=== PATIENT | female | born 2000 | race Caucasian/White ===

== ENCOUNTER 2022-04-02 10:51 | Emergency (ER) | payer OTHER ==
[2022-04-02 12:58] LABS: SARS-CoV-2 NAA Rapid Test Not Detected (NotDetected)
== END 2022-04-02 13:35 | disposition home or self-care (01) ==
LOC: CSHERS 10:51
DX: B34.9 Viral infection, unspecified (principal); Z79.82 Long term (current) use of aspirin; Z20.822 Contact with and (suspected) exposure to COVID-19
CPT/HCPCS: 99283

== ENCOUNTER 2022-04-06 00:32 | Day surgery (SDC) | payer OTHER ==
[2022-04-06] MEDS ORDERED: hydrALAZINE 20 MG/ML VIAL SLOW IVP PRN (01:12)
[2022-04-06] MEDS ORDERED: Lactated Ringer's 1,000 ML IV SCH (01:15)
[2022-04-06 01:47] LABS: Bilirubin Neg (Negative); Blood, Urine Negative (Negative); Clarity Clear (Clear); Glucose, Urine (Dipstick) Normal (Negative); Ketone, Urine 50 mg/dL (Negative); Leukocyte Negative (Negative); Nitrite Negative (Negative); Protein, Urine (Dipstick) Negative (Neg-Trace); Specific Gravity, Urine 1.005 (1.005-1.030)
[2022-04-06 01:57] LABS: RBC/HPF 0-3 HPF (0-3); Urine Culture Reflex No No
[2022-04-06 01:58] LABS: Bacteria/HPF Rare-Few HPF (None Seen); Renal Epithelial 0-3 HPF (None Seen); Squamous Epithelial 0-3 HPF (0-3); WBC/HPF 0-3 HPF (0-3)
[2022-04-06] MEDS ORDERED: Albuterol Sulfate 2.5 mg/3 ml Neb NEB SCH (02:03)
[2022-04-06 03:43] VITALS: BMI 36.1
[2022-04-06] MEDS ORDERED: Iopamidol 370 76% 100 ML VIAL ONE (09:46)
== END 2022-04-06 04:19 | disposition home or self-care (01) ==
LOC: CSHLD/OP 00:32
PROVIDERS: ATTEND Obstetrics & Gynecology
DX: O99.512 Diseases of the respiratory system complicating pregnancy, second trimester (principal); R06.02 Shortness of breath; R05.9 Cough, unspecified; R06.00 Dyspnea, unspecified; O99.891 Other specified diseases and conditions complicating pregnancy; R30.0 Dysuria; O26.892 Other specified pregnancy related conditions, second trimester; R10.9 Unspecified abdominal pain; R07.81 Pleurodynia; R51.9 Headache, unspecified; Z3A.27 27 weeks gestation of pregnancy; Z79.899 Other long term (current) drug therapy
CPT/HCPCS: 51701; 71046; 71275; 81001; 96360; 96361; 99282; Q9967

== ENCOUNTER 2022-07-01 19:00 | Inpatient (IN) | payer OTHER ==
[2022-07-01] MEDS ORDERED: Lidocaine 1% (PF) 30 ML VIAL SC PRN (20:59)
[2022-07-01] MEDS ORDERED: Promethazine HCl 25 MG/ML VIAL IM PRN (20:59)
[2022-07-01] MEDS ORDERED: hydrALAZINE 20 MG/ML VIAL SLOW IVP PRN (20:59)
[2022-07-01] MEDS ORDERED: Ibuprofen 800 MG TAB PO PRN (20:59)
[2022-07-01] MEDS ORDERED: Acetaminophen 500 MG TAB PO PRN (20:59)
[2022-07-01] MEDS ORDERED: Ondansetron PF 4 MG/2 ML Vial IVP PRN (20:59)
[2022-07-01] MEDS ORDERED: NS w/ Oxytocin 30 units 500 ML IV SCH (21:00)
[2022-07-01] MEDS ORDERED: Misoprostol 100 MCG TAB ONE (21:03)
[2022-07-01 21:15] LABS: Hemoglobin 11.8 g/dL (12.0-15.5); Mean Corpuscular HGB CONC 33.8 g/dL (32.0-36.0); Mean Corpuscular Hemoglobin 28.6 pg (27.0-33.0); Mean Corpuscular Volume 84.7 fl (81.6-98.3); Mean Platelet Volume 13.3 fl (7.4-10.4); Platelet Count 218 10x3/uL (150-450); RBC Distribution Width 14.6 % (11.5-14.5); Red Blood Cell (RBC) Count 4.12 10x6/uL (3.90-5.03); White Blood Cell (WBC) Count 8.7 10x3/uL (3.5-10.5)
[2022-07-01] MEDS ORDERED: Misoprostol 100 MCG TAB VAG SCH (22:00)
[2022-07-01 22:29] LABS: HBSAg Index 0.12 S/CO (0-0.99); Hep B Surf Ag Non-Reactive S/CO (NonReactive)
[2022-07-01 22:30] LABS: Syphilis Antibody Nonreactive (Nonreactive); Syphilis Antibody Index 0.04 S/CO (<1.00 Non-Reactive)
[2022-07-01 23:46] LABS: SARS-CoV-2 NAA Rapid Test Not Detected (NotDetected)
[2022-07-02] MEDS ORDERED: NS w/ Oxytocin 30 units 500 ML IV SCH ×2 (01:30→11:11)
[2022-07-02 01:42] LABS: Glucose 77 mg/dL (70-105)
[2022-07-02] MEDS: Lactated Ringer's 1,000 ML IV SCH ×2 (11:10→11:11)
[2022-07-02] MEDS ORDERED: Ondansetron PF 4 MG/2 ML Vial IVP PRN (11:11)
[2022-07-02] MEDS ORDERED: Boostrix 0.5 ML (Tdap) VIAL (>/=7 yrs of age) IM ONE (11:11)
[2022-07-02] MEDS ORDERED: diphenhydrAMINE 25 MG CAP PO PRN (11:11)
[2022-07-02] MEDS ORDERED: Promethazine HCl 25 MG/ML VIAL IM PRN (11:11)
[2022-07-02] MEDS ORDERED: Lanolin Ointment 7 GM TUBE TOP PRN (11:11)
[2022-07-02] MEDS ORDERED: Milk Of Magnesia 30 ML UDCUP PO PRN (11:11)
[2022-07-02] MEDS ORDERED: Benzocaine-Menthol 82.5 ML CAN TOP PRN (11:11)
[2022-07-02] MEDS ORDERED: Preparation H Ointment 28 GM TUBE PR PRN (11:11)
[2022-07-02] MEDS ORDERED: hydrALAZINE 20 MG/ML VIAL SLOW IVP PRN (11:11)
[2022-07-02] MEDS ORDERED: Bisacodyl 10 MG SUPP PR PRN (11:11)
[2022-07-02] MEDS ORDERED: Misoprostol 200 MCG TAB VAG PRN (11:11)
[2022-07-02] MEDS: Ferrous Sulfate 325 MG TAB PO SCH (14:46)
[2022-07-02] MEDS: Ibuprofen 800 MG TAB PO SCH (18:22)
[2022-07-02] MEDS ORDERED: Acetaminophen 500 MG TAB PO PRN (20:58)
[2022-07-02] MEDS: Docusate 100 MG CAP PO SCH (21:23)
[2022-07-03 04:14] VITALS: TEMP 98
[2022-07-03] MEDS: Ibuprofen 800 MG TAB PO SCH ×2 (05:49→12:35)
[2022-07-03 07:42] VITALS: BP 115/58
[2022-07-03] MEDS ORDERED: Prenatal Vitamin 1 TAB PO SCH (09:00)
[2022-07-03] MEDS: Docusate 100 MG CAP PO SCH (09:45)
[2022-07-03] MEDS: Ferrous Sulfate 325 MG TAB PO SCH (09:49)
== END 2022-07-03 12:56 | disposition home or self-care (01) | DRG 806 ==
LOC: UNDOADMIN 19:40 → CSHLD 19:40 → CSHPED 07-02 11:10
PROVIDERS: ADMIT Student in an Organized Health Care Education/Training Program; ATTEND Student in an Organized Health Care Education/Training Program
PROC: 10E0XZZ Delivery of Products of Conception, External Approach (ICD-10-PCS; principal; 2022-07-02)
PROC: 3E0P7VZ Introduction of Hormone into Female Reproductive, Via Natural or Artificial Opening (ICD-10-PCS; 2022-07-02)
PROC: 3E033VJ Introduction of Other Hormone into Peripheral Vein, Percutaneous Approach (ICD-10-PCS; 2022-07-02)
DX: O24.420 Gestational diabetes mellitus in childbirth, diet controlled (principal); O10.92 Unspecified pre-existing hypertension complicating childbirth; Z37.0 Single live birth; Z3A.39 39 weeks gestation of pregnancy; Z20.822 Contact with and (suspected) exposure to COVID-19; D64.9 Anemia, unspecified; O99.02 Anemia complicating childbirth; E66.9 Obesity, unspecified; O99.214 Obesity complicating childbirth; O34.43 Maternal care for other abnormalities of cervix, third trimester; N84.1 Polyp of cervix uteri; Z79.899 Other long term (current) drug therapy
CPT/HCPCS: 82947; 85027; 86780; 86850; 86900; 86901; 87340; J2590; U0002

== ENCOUNTER 2022-09-14 23:18 | Emergency (ER) | payer OTHER ==
[2022-09-14] MEDS ORDERED: Ketorolac Tromethamine 30 MG/ML VIAL ONE (23:35)
[2022-09-14] MEDS ORDERED: Ondansetron PF 4 MG/2 ML Vial ONE (23:35)
[2022-09-14 23:47] LABS: #Eosinphils 0.1 10x3/uL (0.0-0.5); #Monocytes 0.6 10x3/uL (0.0-1.1); #Neutrophils 5.5 10x3/uL (1.5-8.4); %Basophils 0.3 % (0.0-2.0); %Eosinophils 1.1 % (0.0-6.0); %Lymphocytes 35.5 % (18.0-47.0); %Monocytes 5.9 % (0.0-10.0); Hemoglobin 11.6 g/dL (12.0-15.5); Mean Corpuscular Hemoglobin 27.5 pg (27.0-33.0); Mean Platelet Volume 10.1 fl (7.4-10.4); Platelet Count 421 10x3/uL (150-450); RBC Distribution Width 14.1 % (11.5-14.5); Red Blood Cell (RBC) Count 4.22 10x6/uL (3.90-5.03); White Blood Cell (WBC) Count 9.7 10x3/uL (3.5-10.5)
[2022-09-14 23:59] LABS: ALT (SGPT) 22 U/L (8-55); AST (SGOT) 36 U/L (5-34); Albumin 4.5 g/dL (3.5-5.0); Alkaline Phosphatase 104 U/L (40-100); Anion Gap 16 mmol/L (10-20); BUN (Urea Nitrogen) 11 mg/dL (7.0-18.7); Bilirubin, Total 0.2 mg/dL (0.2-1.2); Calc. Creatinine Clearance 0 mL/min (70-130); Calcium 9.7 mg/dL (7.8-10.44); Carbon Dioxide 23 mmol/L (22-29); Chloride 106 mmol/L (98-107); Estimated GFR 105; Globulin 3.4 g/dL (2.4-3.5); Glucose 88 mg/dL (70-105); Lipase 16 U/L (8-78); Potassium 3.8 mmol/L (3.5-5.1); Protein, Total 7.9 g/dL (6.0-8.3); Sodium 141 mmol/L (136-145)
== END 2022-09-15 01:10 | disposition home or self-care (01) ==
LOC: CSHERS 23:18
DX: K82.8 Other specified diseases of gallbladder (principal)
CPT/HCPCS: 76705; 80053; 83690; 83735; 85025; 96361; 96374; 96375; 96376; J1885; J2405

== ENCOUNTER 2023-05-17 12:37 | Emergency (ER) | payer OTHER, SELFPAY ==
[2023-05-17] MEDS ORDERED: Lidocaine 1% PF 5 ML VIAL ONE ×2 (14:47→15:15)
== END 2023-05-17 15:34 | disposition home or self-care (01) ==
LOC: CSHERS 12:37
DX: S61.111A Laceration without foreign body of right thumb with damage to nail, initial encounter (principal); W23.1XXA Caught, crushed, jammed, or pinched between stationary objects, initial encounter
CPT/HCPCS: 11750

== ENCOUNTER 2023-05-17 22:38 | Emergency (ER) | payer OTHER, SELFPAY | END 2023-05-17 23:15 | disposition left against medical advice (07) | LOC: CSHERS 22:38 | DX: Z53.21 Procedure and treatment not carried out due to patient leaving prior to being seen by health care provider (principal) ==